=== PATIENT | female | born 1945 | race Caucasian/White ===

== ENCOUNTER → 2016-12-31 | Outpatient (CLI) | payer MEDICARE ==
[~2016-12-31] VITALS: Ht 160 cm; Wt 73.0 kg
[~2016-12-31] MED LIST: ATOR1TAB19 PO; LIDOCAINE 2% INJ 100 MG/5 ML SDV (FOR ANES.) As Ordered ONE; MELO15TA4 PO; NS 1,000 ML IV SCH; PRAV10TA PO; PROPOFOL 200 MG/20 ML VIAL As Ordered ONE
--- NOTE | 2016-12-31 09:15 | ROOR ---
Patient Name: Katherine Holloway Procedure Date: 12/31/2016 8:56 AM Date of : 1945 Age: 71 Room: [facility] Gender: Female Note Status: Finalized Procedure: Colonoscopy to Cecum Indications: Screening for colorectal malignant neoplasm, Last colonoscopy: 2005 Providers: Arnaldo Trevino MD Referring MD: Luiz Gonzales MD Requesting Provider: Medicines: Monitored Anesthesia Care Complications: No immediate complications. Procedure: Pre-Anesthesia Assessment: - The heart rate, respiratory rate, oxygen saturations, blood pressure, adequacy of pulmonary ventilation, and response to care were monitored throughout the procedure. The Colonoscope was introduced through the anus and advanced to the cecum, identified by appendiceal orifice and ileocecal valve. The colonoscopy was performed without difficulty. The patient tolerated the procedure well. The quality of the bowel preparation was excellent. Findings: The perianal and digital rectal examinations were normal. Non-bleeding internal hemorrhoids were found during retroflexion. The hemorrhoids were small and Grade I (internal hemorrhoids that do not prolapse). No other significant abnormalities were identified in a careful examination of the remainder of the colon. The exam was otherwise without abnormality on direct and retroflexion views. Impression: - Non-bleeding internal hemorrhoids. - The examination was otherwise normal on direct and retroflexion views. - No specimens collected. - The exam was otherwise normal to the cecum. Recommendation: - Patient has a contact number available for emergencies. The signs and symptoms of potential delayed complications were discussed with the patient. Return to normal activities tomorrow. Written discharge instructions were provided to the patient. - High fiber diet. - Discharge patient to home. - Continue present medications. - Repeat colonoscopy prn for symptoms only - Continue present medications. - The findings and recommendations were discussed with the patient's family. Arnaldo Trevino MD Arnaldo Trevino MD 12/31/2016 9:15:33 AM This report has been signed electronically. Number of Addenda: 0 Note Initiated On: 12/31/2016 8:56 AM Estimated Blood Loss: Estimated blood loss: none.
[2016-12-31 09:50] VITALS: BP 139/68
== END | disposition home or self-care (01) ==
LOC: M OPP 07:20
PROVIDERS: ATTEND Internal Medicine Gastroenterology
DX: Z12.11 Encounter for screening for malignant neoplasm of colon (principal); K64.0 First degree hemorrhoids; E04.9 Nontoxic goiter, unspecified; R12 Heartburn; M19.90 Unspecified osteoarthritis, unspecified site; Z79.899 Other long term (current) drug therapy; Z88.8 Allergy status to other drugs, medicaments and biological substances

== ENCOUNTER 2017-05-26 04:47 | Emergency (ER) | payer MEDICARE ==
[~2017-05-26] VITALS: Ht 160 cm; Wt 75.0 kg
[~2017-05-26 04:47] MED LIST changes: -LIDOCAINE 2% INJ 100 MG/5 ML SDV (FOR ANES.) As Ordered ONE; -NS 1,000 ML IV SCH; -PRAV10TA PO; +PRAV10TA4 PO; -PROPOFOL 200 MG/20 ML VIAL As Ordered ONE
[2017-05-26] MEDS ORDERED: ONDANSETRON 4MG/2ML VIAL (J2405) IV ONE (06:00)
[2017-05-26] MEDS: MORPHINE 4 MG/ML 1ML SYRINGE IV PRN ×2 (06:10→06:25)
[2017-05-26 06:11] LABS: BASO % 0.5 % (0.0-1.0); EOS # 0.3 K/mm3 (0.0-0.50); EOS % 4.9 % (0.0-3.0); LARGE UNSTAINED CELL # 0.1 K/mm3 (0.0-0.4); LARGE UNSTAINED CELL % 1.3 % (0.0-4.0); LYMPH # 1.5 K/mm3 (1.5-4.5); MEAN CORPUSCULAR HEMOGLOBIN 32.5 pg (27.0-33.0); MEAN CORPUSCULAR HGB CONC 33.6 g/dl (32.0-36.5); MEAN CORPUSCULAR VOLUME 96.7 fl (80.0-96.0); MONO # 0.4 K/mm3 (0.0-0.8); MONO % 6.1 % (0.0-5.0); NEUTROPHILS # 4.2 K/mm3 (1.8-7.7); NEUTROPHILS % 64.1 % (36.0-66.0); PLATELET COUNT, AUTOMATED 192 k/mm3 (150-450); RED CELL DISTRIBUTION WIDTH 12.3 % (11.5-14.5); WHITE BLOOD COUNT 6.5 K/mm3 (4.0-10.0)
[2017-05-26 06:18] LABS: ALBUMIN 3.4 GM/DL (3.2-5.2); ALKALINE PHOSPHATASE 136 U/L (45-117); ALT/SGPT 22 U/L (12-78); ANION GAP 7 MEQ/L (8-16); AST/SGOT 16 U/L (15-37); BILIRUBIN,DIRECT < 0.1 MG/DL (0.0-0.2); BILIRUBIN,TOTAL 0.4 MG/DL (0.2-1.0); BLOOD UREA NITROGEN 33 MG/DL (7-18); CALCIUM LEVEL 8.2 MG/DL (8.8-10.2); CARBON DIOXIDE LEVEL 26 MEQ/L (21-32); CHLORIDE LEVEL 109 MEQ/L (98-107); CREATININE FOR GFR 0.92 MG/DL (0.55-1.02); GLOMERULAR FILTRATION RATE > 60.0 (>39); GLUCOSE, FASTING 115 MG/DL (83-110); SODIUM LEVEL 142 MEQ/L (136-145); TOTAL PROTEIN 6.5 GM/DL (6.4-8.2)
[2017-05-26] MEDS ORDERED: KETOROLAC 30 MG/ML VIAL (J1885) IV ONE (06:45)
[2017-05-26] MEDS ORDERED: ISOVUE-370 76% 100ML VIAL (Q9967) As Ordered ONE (07:02)
[2017-05-26 07:24] VITALS: BP 118/51
--- NOTE | 2017-05-26 07:40 | REPUSA ---
CLINICAL HISTORY: Abdominal pain. TECHNIQUE: Multiple axial, sagittal and coronal CT images were obtained through the abdomen and pelvi s after administration of oral and intravenous contrast material. Images were obtained before and aft er IV contrast administration. COMMENTS: Scattered simple hepatic cysts with the largest measuring 1.3 cm. Small sliding hiatal hernia. The remaining liver is of uniform attenuation without mass or defect. There is no intra or extrahepat ic biliary ductal dilatation. The spleen is normal. The gallbladder is within normal limits. The panc reas is of normal contour and attenuation characteristics. There is no evidence of adrenal mass. 3 mm left renal nonobstructing stone. 3.5 mm obstructing stone of the right ureterovesical junction. Both kidneys demonstrate prompt and equal nephrograms. The kidneys are normal in size, shape and conf iguration. There is no evidence of renal or ureteral mass. No left ureteral calculi are identified. T here is no left hydroureter or hydronephrosis. No evidence for appendicitis. There is no bowel wall thickening. No evidence for small or large azeb l obstruction. Moderate large bowel fecal stasis. Fluid sent to distal small bowel stomach ascending colon. There is no evidence of abdominal ascites or lymphadenopathy. There is no evidence of intrinsic or extrinsic bladder mass. There is no pelvic ascites or lymphadeno higinio. Moderate large bowel fecal stasis. Images of the lung bases show no evidence of pleural or parenchymal mass. There are no pleural effusi ons. The bony structures are free of lytic or blastic lesions. Multilevel degenerative changes are seen in volving the thoracolumbar spine. Scattered calcifications are seen involving the aorta and major bran ches compatible with atherosclerosis. IMPRESSION: Obstructing stone of the right ureterovesical junction. Mild right hydroureteronephrosis. Small sliding hiatal hernia. Mild ileus. Thank you for your kind referral of this patient.
[2017-05-26] MEDS ORDERED: ZOFR4TAB3 PO (08:11)
[2017-05-26] MEDS ORDERED: PERC5TAB12 PO (08:11)
== END 2017-05-26 09:44 | disposition home or self-care (01) ==
LOC: EDBD 04:47 → M ED 06:02
DX: N20.1 Calculus of ureter (principal)
CPT/HCPCS: 74177; 80048; 80076; 81001; 83690; 85025; 87086; 93041; 96374; 96375; 99285; J1885; J2405; Q9967

== ENCOUNTER → 2017-06-20 | Outpatient (CLI) | payer MEDICARE ==
[~2017-06-20] MED LIST changes: +PERC5TAB12 PO; +ZOFR4TAB3 PO
--- NOTE | 2017-06-20 16:01 | REPMRS ---
Patient History The patient states she has not had a clinical breast exam in over a year. Patient is postmenopausal. Family history of prostate cancer in brother. Digital Woman Screen Mammo: June 20, 2017 - Exam #: [id number] Bilateral CC and MLO view(s) were taken. Technologist: Kassidy Carreon, Technologist Prior study comparison: March 18, 2013, digital woman screen mammo performed at [facility] to [facility]. February 04, 2011, bilateral bilat screen digital mammo performed at [facility]. FINDINGS: There are scattered fibroglandular densities. The patient states that there are no palpable abnormalities or other breast complaints. There has been no change in the appearance of the mammogram from the prior studies. There is moderately dense fibroglandular tissue which is fairly symmetric. There is no interval development of dominant mass, areas of architectural distortion, or clustered microcalcification typical of malignancy. No significant changes when compared with prior studies. ASSESSMENT: BI-RADS/ACR category 1 mammogram. Negative. Recommendation Routine screening mammogram in 1 year (for women over age 40). This mammogram was interpreted with the aid of an FDA-approved computer-aided dectection system. A. Negative x-ray reports should not delay biopsy if a dominant or clinically suspicious mass is present. B. Not all cancers are identified by mammography. C. Adenosis and dense breast may obscure an underlying neoplasm. Electronically Signed By: Juvenal Myers M.D. 06/20/17 1600
== END ==
LOC: M WHC 14:30
PROVIDERS: ATTEND Family Medicine
DX: Z12.31 Encounter for screening mammogram for malignant neoplasm of breast (principal); Z78.0 Asymptomatic menopausal state

== ENCOUNTER 2018-09-08 06:32 | Emergency (ER) | payer MEDICARE ==
[2018-09-08 07:04] LABS: BASO % 0.7 % (0.0-1.0); EOS # 0.3 10^3/uL (0.0-0.50); EOS % 4.3 % (0.0-3.0); HEMATOCRIT 44.5 % (36.0-47.0); IMMATURE GRANULOCYTE % 0.2 % (0-3.0); LYMPH # 1.1 10^3/uL (1.5-4.5); LYMPH % 18.3 % (24.0-44.0); MEAN CORPUSCULAR HEMOGLOBIN 31.3 pg (27.0-33.0); MEAN CORPUSCULAR HGB CONC 33.7 g/dl (32.0-36.5); MEAN CORPUSCULAR VOLUME 92.7 fl (80.0-96.0); MONO # 0.5 10^3/uL (0.0-0.8); MONO % 7.8 % (0.0-5.0); NEUTROPHILS # 4.2 10^3/uL (1.8-7.7); NEUTROPHILS % 68.7 % (36.0-66.0); PLATELET COUNT, AUTOMATED 175 10^3/uL (150-450); RED CELL DISTRIBUTION WIDTH 11.5 % (11.5-14.5); WHITE BLOOD COUNT 6.1 10^3/uL (4.0-10.0)
[2018-09-08] MEDS ORDERED: MORPHINE 4 MG/ML 1ML VIAL/SYRINGE (J2270) IV (07:15)
[2018-09-08 07:25] LABS: ALBUMIN 3.3 GM/DL (3.2-5.2); ALBUMIN/GLOBULIN RATIO 0.94 (1.00-1.93); ALKALINE PHOSPHATASE 140 U/L (45-117); ALT/SGPT 18 U/L (12-78); ANION GAP 6 MEQ/L (8-16); AST/SGOT 13 U/L (7-37); BILIRUBIN,DIRECT 0.1 MG/DL (0.0-0.2); BILIRUBIN,TOTAL 0.3 MG/DL (0.2-1.0); BLOOD UREA NITROGEN 22 MG/DL (7-18); CALCIUM LEVEL 8.1 MG/DL (8.8-10.2); CARBON DIOXIDE LEVEL 28 MEQ/L (21-32); CHLORIDE LEVEL 108 MEQ/L (98-107); CREATININE FOR GFR 0.99 MG/DL (0.55-1.30); GLOMERULAR FILTRATION RATE 58.5 (>39); GLUCOSE, FASTING 100 MG/DL (70-100); LIPASE 130 U/L (73-393); POTASSIUM SERUM 4.8 MEQ/L (3.5-5.1); SODIUM LEVEL 142 MEQ/L (136-145); TOTAL PROTEIN 6.8 GM/DL (6.4-8.2)
[2018-09-08] MEDS: NS 500 ML IV (07:41)
[2018-09-08] MEDS: KETOROLAC 30 MG/ML VIAL (J1885) IV (07:42)
[2018-09-08] MEDS: ONDANSETRON 4MG/2ML VIAL (J2405) IV (07:42)
[2018-09-08 08:15] LABS: APPEARANCE, URINE CLEAR (CLEAR); BACTERIA, URINE AUTO NEGATIVE (NEGATIVE); BILIRUBIN, URINE AUTO NEGATIVE (NEGATIVE); BLOOD, URINE BLOOD NEGATIVE (NEGATIVE); COLOR, URINE STRAW (YELLOW); GLUCOSE, URINE (UA) AUTO NEGATIVE (NEGATIVE); KETONE, URINE AUTO NEGATIVE (NEGATIVE); LEUKOCYTE ESTERASE, URINE AUTO 2+ (NEGATIVE); NITRITE, URINE AUTO NEGATIVE (NEGATIVE); PROTEIN, URINE AUTO NEGATIVE (NEGATIVE); RBC, URINE AUTO 3 /HPF (0-3); SPECIFIC GRAVITY URINE AUTO 1.013 (1.002-1.035); SQUAMOUS EPITHELIAL CELL UR AU 0 /HPF (0-6); UROBILINOGEN, URINE AUTO 0.2 mg/dL (0.0-2.0); WBC, URINE AUTO 7 /HPF (0-3)
== END 2018-09-08 09:07 | disposition home or self-care (01) ==
LOC: M ED 06:32
DX: N20.1 Calculus of ureter (principal); R11.0 Nausea; E78.9 Disorder of lipoprotein metabolism, unspecified; Z87.442 Personal history of urinary calculi; Z88.8 Allergy status to other drugs, medicaments and biological substances; Z79.899 Other long term (current) drug therapy
CPT/HCPCS: J2405

== ENCOUNTER → 2021-09-08 | Outpatient (CLI) | payer MEDICARE ==
[~2021-09-08] MED LIST changes: +FLOM0.4C39 PO; +MELO15TA28 PO; -MELO15TA4 PO; +ZOFR4TAB14 PO; -ZOFR4TAB3 PO
--- NOTE | 2021-09-20 08:34 | REP ---
INDICATION: ENC SCREEN MAMMO FOR MALIGNANT NEOPLASM OF BREAST. COMPARISON: Multiple the latest 06/20/2017. There are no prior DBT images to review. TECHNIQUE: Digital screening mammography was carried out bilaterally in the CC and MLO projections using both 2D and 3D modalities and compared to the prior exams. By history, the patient has no complaints of a palpable breast abnormality or other significant breast complaints. FINDINGS: The breasts are unchanged in size and shape. Once again, scattered dense heterogenous somewhat nodular appearing fibroglandular elements are seen bilaterally. In the left breast upper outer quadrant there is a potential quyen density. This is seen best on DBT imaging and there are no prior DBT images for comparison. Benign calcifications are again identified. No other suspicious features are seen in either breast. The Volpara volumetric breast density pattern is b. IMPRESSION: BIRADS/ACR category 0 mammogram. There is a potential quyen density seen in the left breast as described above for which diagnostic digital DBT spot compression views are recommended in the CC and MLO projections. Additionally, ultrasonography may be necessary. This patient's Tyrer-Cuzick lifetime breast cancer risk assessment score is 3.4%. This mammogram was interpreted with the aid of an FDA-approved computer-aided detection system. The patient states she had a clinical breast exam in over a year. The patient letter being requested is M0. RECOMMENDATION: As above <Electronically signed by Terry Leon > 09/20/21 [id number]
== END ==
LOC: M WHC 13:44
PROVIDERS: ATTEND Family Medicine
DX: R92.2 Inconclusive mammogram (principal)

== ENCOUNTER → 2021-10-04 | Outpatient (CLI) | payer MEDICARE ==
--- NOTE | 2021-10-04 11:02 | REP ---
INDICATION: LEFT BREAST ADD VIEWS. COMPARISON: 09/08/2021, 06/20/2017, 05/24/2015. TECHNIQUE: Compression and tomographic sequences are obtained of the left breast. FINDINGS: The suspected quyen density in the anterior left breast does not persist on today's additional views. There is no change compared to prior studies. IMPRESSION: BIRADS/ACR category 1, negative. No persistent nodule on today's additional views. This mammogram was interpreted with the aid of an FDA-approved computer-aided detection system. The patient letter being requested is M 1. RECOMMENDATION: Repeat screening mammography recommended 1 year (for women over 40). <Electronically signed by Juvenal Currie > 10/04/21 [id number]
== END ==
LOC: M WHC 09:52
PROVIDERS: ATTEND Family Medicine
DX: R92.2 Inconclusive mammogram (principal)
CPT/HCPCS: 77065; G0279

== ENCOUNTER → 2024-07-06 | Outpatient (CLI) | payer MEDICARE | LOC: M WHC 08:37 | PROVIDERS: ATTEND Family Medicine | DX: Z12.31 Encounter for screening mammogram for malignant neoplasm of breast (principal); N63.10 Unspecified lump in the right breast, unspecified quadrant ==

== ENCOUNTER → 2024-07-22 | Outpatient (CLI) | payer MEDICARE | LOC: M WHC 09:11 | PROVIDERS: ATTEND Family Medicine | DX: R92.2 Inconclusive mammogram (principal) | CPT/HCPCS: 77065; G0279 ==

== ENCOUNTER → 2025-04-07 | Outpatient (CLI) | payer MEDICARE ==
[~2025-04-07] MED LIST changes: -FLOM0.4C39 PO; +TAMS-18 PO
== END ==
LOC: M WHC 02-02 12:43
PROVIDERS: ATTEND Family Medicine
DX: R92.2 Inconclusive mammogram (principal); R92.311 Mammographic fatty tissue density, right breast; N63.10 Unspecified lump in the right breast, unspecified quadrant

== ENCOUNTER → 2025-10-14 | Outpatient (CLI) | payer MEDICARE ==
[~2025-10-14] MED LIST changes: +PRAV10TA PO; -PRAV10TA4 PO
== END ==
LOC: M WHC 09:11
PROVIDERS: ATTEND Family Medicine
DX: Z12.31 Encounter for screening mammogram for malignant neoplasm of breast (principal)

== ENCOUNTER 2025-11-29 08:46 | Day surgery (SDC) | payer MEDICARE ==
[~2025-11-29] VITALS: Ht 160 cm; Wt 87.1 kg
[~2025-11-29 08:46] MED LIST changes: +LR 1,000 ML IV SCH; +UNRESOLVED CLARIFICATION ENTRY XX SCH
[2025-11-29] MEDS: CYCLOPENTOLATE 1% OPHTH SOLN 2 ML BTL OS SCH (09:59)
[2025-11-29] MEDS: FLURBIPROFEN 0.03% OPHTH SOLN 2.5 ML OS SCH (09:59)
[2025-11-29] MEDS: PHENYLEPHRINE 2.5% OPHTH SOL 2ML OS SCH (09:59)
[2025-11-29] MEDS: TETRACAINE 0.5% OPHTH SOLN 4ML OS SCH (09:59)
[2025-11-29] MEDS: CEFUROXIME 1 MG/0.1 ML INTRACAMERAL INJ As Ordered ONE (11:39)
[2025-11-29] MEDS: LIDOCAINE 1% SDV 5 ML VIAL As Ordered ONE (11:39)
[2025-11-29 11:56] VITALS: BP 149/64; TEMP 97; O2SAT 95
== END 2025-11-29 12:26 | disposition home or self-care (01) ==
LOC: M SDC 08:46
PROVIDERS: ATTEND Ophthalmology
DX: H25.11 Age-related nuclear cataract, right eye (principal); E04.1 Nontoxic single thyroid nodule; Z79.1 Long term (current) use of non-steroidal anti-inflammatories (NSAID)
CPT/HCPCS: 66984; J0697; J3010; V2632